=== PATIENT | female | born 1995 | race Caucasian/White ===

== ENCOUNTER 2017-11-12 00:01 | Emergency (ER) | payer SELFPAY ==
[~2017-11-12] VITALS: Ht 165.1 cm; Wt 85.0 kg
[~2017-11-12 00:01] MED LIST: PROMSYP PO
[2017-11-12 00:02] VITALS: BP 124/63; PULSE 99; RESP 16; TEMP 98.3; O2SAT 98
[2017-11-12 01:35] LABS: AMORPHOUS SEDIMENT, URINE RARE; BACTERIA, URINE OCC /hpf; BLOOD, URINE NEG (NEG); GLUCOSE,URINE NEG (NEG); KETONE, URINE NEG (NEG); MUCUS URINE FEW /lpf (OCC); NITRITE,URINE NEG (NEG); SQUAMOUS EPITHELIAL CELL URINE 9 /hpf (0-5); URINE COLOR YELLOW (YELLW/STRAW); URINE LEUKOCYTE ESTERASE NEG (NEG)
[2017-11-12 01:36] LABS: BILIRUBIN, URINE NEG (NEG)
[2017-11-12] MEDS ORDERED: PHEN0.4T PO (02:05)
[2017-11-12] MEDS ORDERED: CIPR-9 PO (02:05)
--- NOTE | 2017-11-12 02:06 | PD ---
HPI Chief Complaint: Complaint Time Seen by Provider: 00:47 Travel History International Travel<30 days: No Contact w/Intl Traveler<30days: No Traveled to known affect area: No History of Present Illness HPI Patient has a dysuria frequency hesitancy and decreased urine output Pt knows the symptoms to be the beginning of a UTI She is sure she has one . comes in early at the first symptoms started 2 hrs ago. gravel clawing feeling at meatus urethra . took nothing for the Sx comes right to the Er she did not see another MD for this current illness. PFSH Past Medical History Immunizations Current: Yes Tetanus Vaccination: Unknown Influenza Vaccination: No ?: Unknown Social History Alcohol Use: No Tobacco Use: No Substance Use: No Allergies-Medications (Allergen,Severity, Reaction): Coded Allergies: No Known Allergies (Unverified Adverse Reaction, Unknown, 11/12/17) Reported Meds & Prescriptions Reported Meds & Active Scripts Active Pyridium (Phenazopyridine HCl) 100 Mg Tab 100 Mg PO Q8H PRN Cipro (Ciprofloxacin HCl) 500 Mg Tab 500 Mg PO BID Review of Systems Except as stated in HPI: all other systems reviewed are Neg Genitourinary: Positive: Urgency, Frequency, Dysuria, Decreased Urinary Output Physical Exam Narrative GENERAL: Nontoxic-appearing in no distress SKIN: Warm and dry. HEAD: Atraumatic. Normocephalic. EYES: Pupils equal and round. No scleral icterus. No injection or drainage. ENT: No nasal bleeding or discharge. Mucous membranes pink and moist. NECK: Trachea midline. No JVD. CARDIOVASCULAR: Regular rate and rhythm. RESPIRATORY: No accessory muscle use. Clear to auscultation. Breath sounds equal bilaterally. GASTROINTESTINAL: Abdomen slight suprapubic-tender, nondistended. Hepatic and splenic margins not palpable. MUSCULOSKELETAL: Extremities without clubbing, cyanosis, or edema. No obvious deformities. NEUROLOGICAL: Awake and alert. No obvious cranial nerve deficits. Motor grossly within normal limits. Five out of 5 muscle strength in the arms and legs. Normal speech. PSYCHIATRIC: Appropriate mood and affect; insight and judgment normal. Data Data Last Documented VS Vital Signs Date Time Temp Pulse Resp B/P (MAP) Pulse Ox O2 Delivery O2 Flow Rate FiO2 11/12/17 02:32 11/12/17 00:02 98.3 99 16 98 Room Air Orders Orders Urinalysis - C+S If Indicated (11/12/17 01:15) Ciprofloxacin (Cipro) (11/12/17 02:15) Ed Discharge Order (11/12/17 02:24) Labs Laboratory Tests Test 11/12/17 01:10 Urine Color YELLOW Urine Turbidity HAZY Urine pH 6.0 Urine Specific [place] 1.040 Urine Protein 30 mg/dL Urine Glucose (UA) NEG mg/dL Urine Ketones NEG mg/dL Urine Occult Blood NEG Urine Nitrite NEG Urine Bilirubin NEG Urine Urobilinogen 4.0 MG/DL Urine Leukocyte Esterase NEG Urine RBC 1 /hpf Urine WBC 3 /hpf Urine Squamous Epithelial Cells 9 /hpf Urine Amorphous Sediment RARE Urine Bacteria OCC /hpf Urine Mucus FEW /lpf Microscopic Urinalysis Comment CULT NOT INDICATED MDM Medical Decision Making Medical Screen Exam Complete: Yes Emergency Medical Condition: Yes Differential Diagnosis Early UTI versus cystitis versus bacterial vaginosis versus yeast infection versus Narrative Course Asians urine has 3 white blood cells but she sure that she's having the beginning of symptoms and she came in early possibly it is just the beginnings of the white cells elevating I will treat her with Cipro 1 pill here in 5 days twice a day follow up as an outpatient Diagnosis Primary Impression: Dysuria Patient Instructions: General Instructions, Urinary Tract Infection in (ED) Scripts Phenazopyridine (Pyridium) 100 Mg Tab 100 MG PO Q8H Y for DYSURIA, #6 TAB 0 Refills Prov: Michael Haji MD 11/12/17 Ciprofloxacin (Cipro) 500 Mg Tab 500 MG PO BID for Infection, #10 TAB 0 Refills Prov: Michael Haji MD 11/12/17 Disposition: 01 DISCHARGE HOME Condition: Good Michael Haji MD Nov 12, 2017 02:06
[2017-11-12] MEDS ORDERED: CIPROFLOXACIN 500 MG TAB PO ONE (02:15)
== END 2017-11-12 02:33 | disposition home or self-care (01) ==
LOC: NEPC 00:01
DX: R30.0 Dysuria (principal); R39.15 Urgency of urination
CPT/HCPCS: 81001; 99283